=== PATIENT | female | born 1975 | race Caucasian/White ===

== ENCOUNTER → 2016-10-12 | Outpatient (CLI) | payer MEDICARE, MEDICAID ==
[~2016-10-12] MED LIST: ABILIFY2 MG PO; ACTOS15 MG PO; AMARYL1 MG PO; AUGMENTIN1 TA2 PO; BACTRIM DS 8001 TA1 PO; DETROL1 MG PO; DIAZEPAM2 MG PO; EFFEXOR100 MG PO; KLONOPIN 0.5MG0.5 MG NG; LANTUS INS100 UNITS/ SC; LOPID 600MG TA600 MG PO; LYRICA25 M1 PO; METFORMIN 500M500 MG PO; NICOTINE PATCH;21 MG TD; NORCO 325 MG-101 TAB PO; NOVOLOG100 U/ML SC; PERCOCET 10 MG1 EACH PO; PHENERGAN 12.12.5 M1 PO; PRILOSEC10 MG PO; REGLAN 5MG TABLE5 MG PO; VESICARE5 MG PO; VOLTAREN50 MG PO; ZANTAC 150150 MG PO
--- NOTE | 2016-10-12 22:44 | RADIOLOGY REPORT PS360 ---
NUC GASTRIC EMPTYING(NUCLEAR) ORDERING PHYSICIAN : JOSEPH PRUETT PATIENT AGE: 41 years GENDER: Female INDICATION: VOMITING Vomiting. Bloating TECHNIQUE: Radiolabeled meal consisting of 0.52 mCi Tc sulfur colloid injected into 2 whole eggs serve as scrambled days, along with 2 pieces of toast and one glass of water. COMPARISON: No relevant studies. CT abdomen from 2015 and November is available which showed not solid food within stomach on that study FINDINGS Using the whole stomach as the defined region of interest/ MAHI: T1 half was 170 minutes. At 90 minutes there is only 6% gastric emptying. This reflects significant Abnormal delayed/decreased gastric emptying-reflecting gastroparesis. IMPRESSION: Abnormal delayed gastric emptying Pronounced Gastroparesis
== END ==
LOC: RAD 09:12
DX: R11.10 Vomiting, unspecified (principal)
CPT/HCPCS: A9541